=== PATIENT | male | born 1980 | race Two or more races ===

== ENCOUNTER 2016-06-13 07:34 | Emergency (ER) | payer OTHER ==
[2016-06-13] MEDS ORDERED: PROPARACAINE HCL 0.5% 300 GTTS/BOT SOLN.DROP ONE ×2 (07:44→07:54)
== END 2016-06-13 08:20 | disposition home or self-care (01) ==
LOC: ED 07:34
DX: T15.91XA Foreign body on external eye, part unspecified, right eye, initial encounter (principal); H44.701 Unspecified retained (old) intraocular foreign body, nonmagnetic, right eye; Z18.9 Retained foreign body fragments, unspecified material; X58.XXXA Exposure to other specified factors, initial encounter; Y93.G1 Activity, food preparation and clean up; Y92.008 Other place in unspecified non-institutional (private) residence as the place of occurrence of the external cause
CPT/HCPCS: 99282 ×2; 65220 ×2; A9270